=== PATIENT | female | born 1990 | race African-American/Black ===

== ENCOUNTER 2019-09-12 00:59 | Emergency (ER) | payer OTHER ==
--- NOTE | 2019-09-12 02:13 | PDOC ---
History of Present Illness - General Stated Complaint: ANKLE PAIN/FALL Time Seen by Provider: 09/12/19 02:13 - History of Present Illness Initial Comments: 09/12/19 02:13 Ms. Ramirez is a 29 yo female w/ pmh of asthma and obesity who presents for evaluation of L ankle injury. Patient reports she missed a step earlier and inverted her ankle at approximately 7pm this evening. Denies any head injury or LOC. Presents as she is having difficulty walking. Has not taken anything for pain. Reports her "tubes are tied" and she cannot be . The patient denies chest pain, shortness of breath, headache and dizziness. Denies fever, chills, nausea, vomit, diarrhea and constipation. Denies dysuria, frequency, urgency and hematuria. Past History - Past Medical History Allergies/Adverse Reactions: Allergies Allergy/AdvReac Type Severity Reaction Status Date / Time No Known Allergies Allergy Verified 07/04/16 15:20 Home Medications: Ambulatory Orders Pnv95/Iron Fum/Folic Acid [ Caplet] 1 each PO DAILY 06/22/16 Anemia: Yes (sickle cell trait) Asthma: Yes Cancer: No Cardiac Disorders: No Diabetes: No HTN: No Seizures: No Thyroid Disease: No - Surgical History Cholecystectomy: Yes - Reproductive History (#): 2 Para: 2 Therapeutic (s) & number: No - Immunization History Immunization Up to Date: Yes - Psycho Social/Smoking Cessation Hx Smoking Status: Yes Smoking History: Never smoked Have you smoked in the past 12 months: No Number of Cigarettes Smoked Daily: 3 'Breaking Loose' booklet given: 07/30/15 Hx Alcohol Use: No Drug/Substance Use Hx: No Substance Use Type: None Hx Substance Use Treatment: No Review of Systems - Review of Systems Comments:: 09/12/19 02:13 GENERAL/CONSTITUTIONAL: No fever or chills. No weakness. HEAD, EYES, EARS, NOSE AND THROAT: No change in vision. No ear pain or discharge. No sore throat. CARDIOVASCULAR: No chest pain or shortness of breath RESPIRATORY: No cough, wheezing, or hemoptysis. GASTROINTESTINAL: No nausea, vomiting, diarrhea or constipation. GENITOURINARY: No dysuria, frequency, or change in urination. MUSCULOSKELETAL: +L ankle pain as described. SKIN: No rash NEUROLOGIC: No headache, vertigo, loss of consciousness, or change in strength/ sensation. ENDOCRINE: No increased thirst. No abnormal weight change HEMATOLOGIC/LYMPHATIC: No anemia, easy bleeding, or history of blood clots. ALLERGIC/IMMUNOLOGIC: No hives or skin allergy. *Physical Exam - Physical Exam Comments: 09/12/19 02:13 GENERAL: Awake, alert, and fully oriented, in no acute distress HEAD: No signs of trauma, normocephalic, atraumatic EYES: PERRLA, EOMI, sclera anicteric, conjunctiva clear ENT: Auricles normal inspection, hearing grossly normal, nares patent, oropharynx clear without exudates. Moist mucosa NECK: Normal ROM, supple, no lymphadenopathy, JVD, or masses LUNGS: No distress, speaks full sentences, clear to auscultation bilaterally HEART: Regular rate and rhythm, normal S1 and S2, no murmurs, rubs or gallops, peripheral pulses normal and equal bilaterally. ABDOMEN: Soft, nontender, normoactive bowel sounds. No guarding, no rebound. No masses EXTREMITIES: +Tenderness of palpation of L ankle in non-specific pattern. Neurovascularly intact. NEUROLOGICAL: Cranial nerves II through XII grossly intact. Normal speech, normal gait, no focal sensorimotor deficits SKIN: Warm, Dry, normal turgor, no rashes or lesions noted. Medical Decision Making - Medical Decision Making 09/12/19 02:26 Ms. Ramirez is a 29 yo female w/ no significant pmh who presents for evaluation of ankle pain. Will evaluate with XR for fracture and provide symptomatic pain medication. 09/12/19 03:31 XR negative for acute process. Patient ankle wrapped and patient given crutches. Discharging to home. Discharge - Discharge Information Problems reviewed: Yes Clinical Impression/Diagnosis: Ankle pain, left Qualifiers: Chronicity: acute Qualified Code(s): M25.572 - Pain in left ankle and joints of left foot Condition: Stable Disposition: HOME - Follow up/Referral Referrals: Grazyna Tellez MD [Primary Care Provider] - - Patient Discharge Instructions Patient Printed Discharge Instructions: DI for Ankle Pain Additional Instructions: You were evaluated today in the ER for your ankle pain. We performed Xrays which were negative for any fracture. You may take over the counter motrin or tylenol per package instructions for pain. Please follow-up with primary care provider for further evaluation as needed. Return to ER if any fever, chills, pain, or other concerning symptoms. - Post Discharge Activity Work/Back to School Note: Back to Work
--- NOTE | 2019-09-12 02:14 | PDOC ---
Attending Attestation - Resident Resident Name: Oneil Lopez - ED Attending Attestation I have performed the following: I have examined & evaluated the patient, The case was reviewed & discussed with the resident, I agree w/resident's findings & plan - HPI HPI: 09/12/19 03:42 Pt rolled/inverted her left ankle and now with pain. Took a step on an uneven surface - Physicial Exam PE: 09/12/19 03:45 Agree with resident exam Pt is ambulating on her own. - Medical Decision Making 09/12/19 03:47 XR shows no fractures on XR. AP view not perfect; however, pt has proper spaces btwn bones; no stepoffs, and no fractures. Pt will get radha wrapped and provided crutches.
[2019-09-12] MEDS ORDERED: KETOROLAC TROMETHAMINE 30 MG/1 ML VIAL IM ONE (02:19)
[2019-09-12] MEDS ORDERED: KETOROLAC TROMETHAMINE 30 MG/1 ML VIAL ONE (02:38)
[2019-09-12 03:09] VITALS: TEMP 98.3; BMI 43.8
[2019-09-12 03:44] VITALS: BP 151/79; PULSE 99
== END 2019-09-12 03:40 | disposition home or self-care (01) ==
LOC: JER 00:59
PROC: 3E0233Z Introduction of Anti-inflammatory into Muscle, Percutaneous Approach (ICD-10-PCS; principal; 2019-09-12)
DX: S99.812A Other specified injuries of left ankle, initial encounter (principal); M25.572 Pain in left ankle and joints of left foot; X50.1XXA Overexertion from prolonged static or awkward postures, initial encounter; Y93.89 Activity, other specified; Y92.89 Other specified places as the place of occurrence of the external cause; Y99.8 Other external cause status; J45.909 Unspecified asthma, uncomplicated; E66.01 Morbid (severe) obesity due to excess calories; Z68.41 Body mass index [BMI] 40.0-44.9, adult; D57.3 Sickle-cell trait
CPT/HCPCS: 73610-TC-LT-FY; 73630-TC-LT; 96372; 99282-25

== ENCOUNTER 2025-01-12 02:49 | Emergency (ER) | payer OTHER ==
[2025-01-12 02:55] VITALS: BMI 27.8
[2025-01-12] MEDS ORDERED: ACETAMINOPHEN INJECTION 100 ML ONE (03:12)
[2025-01-12] MEDS ORDERED: MAG HYDROX/AL HYDROX/SIMETH 30 ML UNIT-DOSE CUP ONE (03:12)
[2025-01-12] MEDS: FAMOTIDINE 20 MG/50 ML IVPB 20 MG/50 ML MG IVPB ONE (03:38)
[2025-01-12] MEDS: MAG HYDROX/AL HYDROX/SIMETH 30 ML UNIT-DOSE CUP PO ONE (03:38)
[2025-01-12] MEDS: ACETAMINOPHEN 1000 MG/100 ML BAG IVPB ONE (03:38)
[2025-01-12 03:56] LABS: BASO % 1.2 % (0-2.0); EOS % 3.5 % (0-4.5); HEMATOCRIT 27.4 % (32.4-45.2); HEMOGLOBIN 8.8 GM/dL (10.7-15.3); LYMPH % 28.4 % (8-40); MCHC 32.3 g/dl (32.0-36.0); MEAN CELL VOLUME 68.3 fl (80-96); MEAN PLT VOLUME 7.2 fl (7.5-11.1); MONO % 13.2 % (3.8-10.2); NEUT % 53.7 % (42.8-82.8); PLATELET COUNT 358 10^3/uL (134-434); RBC 4.01 M/mm3 (3.60-5.2); RDW 21.8 % (11.6-15.6)
[2025-01-12 04:18] LABS: POTASSIUM 5.9 mmol/L (3.5-5.1)
[2025-01-12 04:21] LABS: CALCIUM 8.5 mg/dL (8.5-10.1)
[2025-01-12 04:22] LABS: ALBUMIN 3.2 g/dl (3.4-5.0); BLOOD UREA NITROGEN 4.6 mg/dL (7-18); MAGNESIUM 2.1 mg/dL (1.8-2.4)
[2025-01-12 04:25] LABS: CREATININE 0.4 mg/dL (0.55-1.3); PHOSPHOROUS 2.6 mg/dL (2.5-4.9)
[2025-01-12 04:26] LABS: BILIRUBIN,TOTAL 0.3 mg/dL (0.2-1)
[2025-01-12 04:27] LABS: TOT PROT 7.2 g/dl (6.4-8.2)
[2025-01-12 05:20] LABS: PH,URINE 5.5 (5.0-8.0); URINE APPEARANCE Clear; URINE BILIRUBIN Negative (NEGATIVE); URINE COLOR Yellow; URINE GLUCOSE (UA) Negative (NEGATIVE); URINE KETONE Negative (NEGATIVE); URINE LEUK ESTERASE Negative (NEGATIVE); URINE NITRITE Negative (NEGATIVE); URINE PROTEIN Negative (NEGATIVE); URINE UROBILINOGEN 0.2 mg/dL (0.2-1.0)
[2025-01-12 05:36] LABS: ANISOCYTOSIS 2+
[2025-01-12 05:57] LABS: POTASSIUM 3.2 mmol/L (3.5-5.1)
[2025-01-12 05:58] LABS: CALCIUM 8.7 mg/dL (8.5-10.1)
[2025-01-12 06:02] LABS: CREATININE 0.4 mg/dL (0.55-1.3)
[2025-01-12 06:33] VITALS: RESP 18
[2025-01-12] MEDS ORDERED: KETOROLAC TROMETHAMINE 15 MG/ML VIAL ONE (06:35)
[2025-01-12] MEDS ORDERED: POTASSIUM CHLORIDE ORAL LIQUID 20 MEQ/15 ML ONE (06:35)
[2025-01-12] MEDS: POTASSIUM CHLORIDE ORAL LIQUID 20 MEQ/15 ML PO ONE (06:45)
[2025-01-12] MEDS: KETOROLAC TROMETHAMINE 15 MG/ML VIAL IVPUSH ONE (06:46)
[2025-01-12] MEDS: LACTATED RINGERS SOLUTION 1000 ML INFUS.BAG IV ONE (06:46)
[2025-01-12 08:56] VITALS: BP 119/70; PULSE 84; TEMP 98.3
== END 2025-01-12 09:27 | disposition home or self-care (01) ==
LOC: JER 02:49
PROC: 3E033GC Introduction of Other Therapeutic Substance into Peripheral Vein, Percutaneous Approach (ICD-10-PCS; principal; 2025-01-12)
PROC: 3E033NZ Introduction of Analgesics, Hypnotics, Sedatives into Peripheral Vein, Percutaneous Approach (ICD-10-PCS; 2025-01-12)
PROC: 3E0333Z Introduction of Anti-inflammatory into Peripheral Vein, Percutaneous Approach (ICD-10-PCS; 2025-01-12)
DX: R10.13 Epigastric pain (principal); M54.50 Low back pain, unspecified; R07.9 Chest pain, unspecified
CPT/HCPCS: 36415; 74177-TC; 80048; 80053; 81003; 83605; 83690; 83735; 84100; 84703; 85025; 87086; 93005; 93010; 96365; 96375; 99285-25; J0131; Q9967